=== PATIENT | male | born 1995 | race Caucasian/White ===

== ENCOUNTER 2017-02-18 00:26 | Emergency (ER) | payer OTHER ==
[~2017-02-18] VITALS: Ht 177.8 cm; Wt 94.5 kg
[2017-02-18 00:28] VITALS: Ht 177.8 cm; Wt 94.5 kg
[2017-02-18] MEDS ORDERED: METHYLPREDNISOLONE 125 MG INJ IM STA (02:59)
[2017-02-18] MEDS ORDERED: IPRATROPIUM (NEB) 0.5 MG/2.5 ML AMP NEB STA ×2 (02:59→03:47)
[2017-02-18] MEDS ORDERED: LEVALBUTEROL (NEB) 1.25 MG/0.5 ML AMP INH STA ×2 (02:59→03:47)
[2017-02-18] MEDS ORDERED: INSU100C SQ (03:41)
[2017-02-18] MEDS ORDERED: ALBU8.5H3 INH ×2 (03:41→05:46)
--- NOTE | 2017-02-18 03:41 | ERD ---
ER Documentation Chief Complaint Chief Complaint cough x 2 days w/ sob HPI 21-year-old male presents here to emergency department for complaints of cough shortness breath and wheezing for the last 2 days. Patient has been having dry cough, does not cough up any phlegm or blood. Patient has been using his an inhaler, albuterol with mild relief. Patient does not have any fever chills. Patient does not have any chest pain or palpitations. ROS All systems reviewed and are negative except as per history of present illness. Medications Home Meds Active Scripts Albuterol Sulfate* (Proair HFA*) 8.5 Gm Hfa.aer.ad, 2 PUFF INH Q4H Y for WHEEZING AND SOB, #1 INHALER Prov:MYKE TEJEDA NP 02/18/17 Prednisone* (Prednisone*) 50 Mg Tablet, 50 MG PO DAILY for 3 Days, TAB Prov:MYKE TEJEDA NP 02/18/17 Cetirizine Hcl* (Zyrtec*) 10 Mg Capsule, 10 MG PO DAILY, #30 TAB.CHEW Prov:MYKE TEJEDA NP 02/18/17 Guaifenesin-Codeine Phosphate* (Guaifenesin* AC Cough Syrup) 473 Ml Liquid, 10 ML PO Q4H Y for COUGH, #60 ML Prov:MYKE TEJEDA NP 02/18/17 Azithromycin* (Zithromax*) 250 Mg Tablet, 250 MG PO .ZPACK DIRECTED, #6 TAB TAKE 500 MG (2 TABS) THE FIRST DAY THEN 250 MG (1 TAB) DAYS 2-5 Prov:MYKE TEJEDA NP 02/18/17 Reported Medications Albuterol Sulfate* (Proair HFA*) Unknown Strength Hfa.aer.ad, INH Q4H Y for WHEEZING AND SOB, #1 INHALER 02/18/17 Insulin Lispro (Humalog) Unknown Strength Cartridge, SQ 02/18/17 Allergies Allergies: Coded Allergies: No Known Allergy (Unverified , 02/09/13) PMhx/Soc History of Surgery: No Anesthesia Reaction: No Hx Neurological Disorder: No Hx Respiratory Disorders: Yes (ASTHMA) Hx Cardiac Disorders: No Hx Psychiatric Problems: No Hx Miscellaneous Medical Probl: Yes (DM) Hx Alcohol Use: No Hx Substance Use: No Hx Tobacco Use: No Smoking Status: Never smoker FmHx Family History: No coronary disease, No diabetes, No other Physical Exam Vitals Vital Signs Date Time Temp Pulse Resp B/P Pulse Ox O2 Delivery O2 Flow Rate FiO2 02/18/17 03:57 86 22 96 21 02/18/17 03:49 96 20 95 Room Air 02/18/17 03:15 67 20 97 21 02/18/17 00:28 98.1 117 20 127/72 97 Physical Exam GENERAL: The patient is well developed and appropriate for usual state of health, in no apparent distress. CHEST: Diffuse wheezing bilaterally. There are no rhonchi. HEART: Regular rate and rhythm. No murmurs, clicks, rubs or gallops. No S3 or S4. ABDOMEN: Soft, nontender and nondistended. Good bowel sounds. No rebound or guarding. No gross peritonitis. No gross organomegaly or masses. No Valles sign or McBurney point tenderness. BACK: No midline or flank tenderness. EXTREMITIES: Equal pulses bilaterally. There is no peripheral clubbing, cyanosis or edema. No focal swelling or erythema. Full range of motion. Grossly neurovascularly intact. NEURO: Alert and oriented. Cranial nerves 2-12 intact. Motor strength in all 4 extremities with 5/5 strength. Sensation grossly intact. Normal speech and gait. SKIN: There is no apparent rash or petechia. The skin is warm and dry. HEMATOLOGIC AND LYMPHATIC: There is no evidence of excessive bruising or lymphedema. No gross cervical, axillary, or inguinal lymphadenopathy. Results 24 hrs Current Medications Medications (Trade) Dose Ordered Sig/Angie Route PRN Reason Start Time Stop Time Status Last Admin Dose Admin Ipratropium [place] (Atrovent 0.02% (Neb)) 0.5 mg ONCE STAT NEB 02/18/17 02:59 02/18/17 03:01 DC 02/18/17 03:13 Methylprednisolone Sodium Succinate (Solu-Medrol) 125 mg ONCE STAT IM 02/18/17 02:59 02/18/17 03:01 DC 02/18/17 03:08 Levalbuterol (Xopenex Neb) 1.25 mg ONCE STAT INH 02/18/17 02:59 02/18/17 03:01 DC 02/18/17 03:13 Ipratropium [place] (Atrovent 0.02% (Neb)) 0.5 mg ONCE STAT NEB 02/18/17 03:47 02/18/17 03:48 DC 02/18/17 03:55 Levalbuterol (Xopenex Neb) 5 mg ONCE STAT INH 02/18/17 03:47 02/18/17 03:48 DC 02/18/17 03:55 Breathing treatment of albuterol and Atrovent Solu-Medrol IM was given here in emergency department, after treatment, patient's lungs sounds are clear and patient's oxygenation is better. Patient verbalized feeling much better. AMENDMENT: 02/18/2017 5:44:17 AM Kevin Dwyer M.d Comparison is made with 07/26/2014. PROCEDURE: Chest. CLINICAL INDICATION: Asthma exacerbation. TECHNIQUE: Single frontal view of the chest was obtained. COMPARISON: None. FINDINGS: The cardiac silhouette is within normal limits. The aortic arch is unremarkable. There is no focal consolidation, vascular congestion or pleural effusion. There is no pneumothorax. IMPRESSION: No evidence for active cardiopulmonary disease. .Kevin Dwyer MD, MD Date Time Electronically viewed and signed by .Kevin Dwyer MD, MD on 02/18/2017 05:43 .T/ CC: MYKE TEJEDA [employer] Procedures/MDM Medical Decision Making: Patient symptoms are most likely consistent with acute bronchitis with acute asthma exacerbation, possible caused by acute atypical infection.. There is low suspicion for Pneumonia at this time since patients lungs sounds are clear, patient O2 saturation is normal and patient doesnt show any respiratory distress. Patients chest xray doesnt show infiltrates or any other cardiopulmonary emergencies at this time. There is low suspicion for other cardiopulmonary emergencies at this time such as CHF, Pulmonary Embolism, Pneumothorax, Aortic Aneurysm or any other cardiopulmonary emergencies at this time. There is low suspicion for sepsis. Patient appears well and is hemodynamically stable. Fever is controlled with medicines. Disposition: Home. Condition: Stable Prescriptions: Azithromycin, albuterol, prednisone, guaifenesin with codeine, Zyrtec Instructions: Patient is advised to take medications as prescribed. Patient is advised to rest. Patient advised to increase fluid intake, do humidifier at home and if possible, do salt water gargles. Patient is advised that if symptoms are worse, shortness of breath, uncontrolled fever, stridor, vomiting, worst signs and symptoms to return to emergency department immediately. Otherwise, patient is advised to follow up with primary doctor in 5-7 days. Disclaimer: Inadvertent spelling and grammatical errors are likely due to EHR/ dictation software use and do not reflect on the overall quality of patient care. Also, please note that the electronic time recorded on this note does not necessarily reflect the actual time of the patient encounter. Departure Diagnosis: Primary Impression: Acute bronchitis Bronchitis organism: unspecified organism Qualified Code: J20.9 - Acute bronchitis, unspecified organism Additional Impression: Acute asthma exacerbation Asthma severity: unspecified severity Asthma persistence: unspecified Qualified Code: J45.901 - Asthma with acute exacerbation, unspecified asthma severity, unspecified whether persistent Condition: Stable Patient Instructions: Bronchitis With Wheezing (Adult) Additional Instructions: Patient is advised to take medications as prescribed. Patient is advised to rest. Patient advised to increase fluid intake, do humidifier at home and if possible, do salt water gargles. Patient is advised that if symptoms are worse, shortness of breath, uncontrolled fever, stridor, vomiting, worst signs and symptoms to return to emergency department immediately. Otherwise, patient is advised to follow up with primary doctor in 5-7 days. MYKE TEJEDA NP Feb 18, 2017 03:41
[2017-02-18 03:49] VITALS: PULSE 96; RESP 20
--- NOTE | 2017-02-18 05:44 | RADRPT ---
AMENDMENT: 02/18/2017 5:44:17 AM Kevin Dwyer M.d Comparison is made with 07/26/2014. PROCEDURE: Chest. CLINICAL INDICATION: Asthma exacerbation. TECHNIQUE: Single frontal view of the chest was obtained. COMPARISON: None. FINDINGS: The cardiac silhouette is within normal limits. The aortic arch is unremarkable. There is no focal consolidation, vascular congestion or pleural effusion. There is no pneumothorax. IMPRESSION: No evidence for active cardiopulmonary disease. .Kevin Dwyer MD, MD Date Time Electronically viewed and signed by .Kevin Dwyer MD, MD on 02/18/2017 05:43 .T/
[2017-02-18] MEDS ORDERED: AZIT250T94 PO (05:46)
[2017-02-18] MEDS ORDERED: CETI10CA PO (05:46)
[2017-02-18] MEDS ORDERED: PRED50TA PO (05:46)
[2017-02-18] MEDS ORDERED: GUAI473L22 PO (05:46)
== END 2017-02-18 06:07 | disposition home or self-care (01) ==
LOC: FTE 00:26
DX: J20.9 Acute bronchitis, unspecified (principal); J45.901 Unspecified asthma with (acute) exacerbation; E11.9 Type 2 diabetes mellitus without complications; Z79.4 Long term (current) use of insulin
CPT/HCPCS: 71010; 94644; 94664; 96372; J2930; Z7502; Z7610